=== PATIENT | male | born 1965 | race Caucasian/White ===

== ENCOUNTER 2016-06-07 05:46 | Emergency (ER) | payer BC ==
[2016-06-07 05:58] VITALS: BP 162/96
--- NOTE | 2016-06-07 06:11 | EDM.PDOC ---
ED HPI GENERAL MEDICAL PROBLEM - General Chief Complaint: General Stated Complaint: Tooth Pain Time Seen by Provider: 06/07/16 06:09 Source of Information: Reports: Patient, RN, RN notes reviewed History Limitations: Reports: No limitations - History of Present Illness INITIAL COMMENTS - FREE TEXT/NARRATIVE: Patient presents to the ED at [facility] with dental pain secondary to abscess formation. Patient states he does have an appointment with a dentist next week. No fevers or chills. No headaches. Pain and swelling is centrally located around right upper molar #4. Treatments [employer]IP[employer] APPRENTICE: Reports: Acetaminophen, Cold therapy, NSAIDS Tooth/Teeth Pain Score (Numeric/FACES): 8 - Related Data Allergies Allergy/AdvReac Type Severity Reaction Status Date / Time No Known Allergies Allergy Verified 06/07/16 05:51 Home Meds: Home Meds Acetaminophen [Tylenol Arthritis] 650 mg PO BID 06/07/16 [History] Cyclobenzaprine [Flexeril] 1 tab PO TID PRN 06/07/16 [History] Social & Family History - Tobacco Use Smoking Status *Q: Current Every Day Smoker Years of Tobacco use: 31 Packs/Tins Daily: 1.5 - Caffeine Use Caffeine Use: Reports: Coffee, Energy drinks - Recreational Drug Use Recreational Drug Use: No ED ROS GENERAL - Review of Systems Review Of Systems: See Below Constitutional: Denies: fever, chills, weakness HEENT: Reports: Dental pain Respiratory: Denies: Shortness of Breath, Cough Cardiovascular: Denies: Chest pain, Palpitations Skin: Reports: no symptoms Neurological: Denies: Dizziness, Headache, Numbness, Tingling ED EXAM, GENERAL - Physical Exam Exam: See Below Exam Limited By: No limitations General Appearance: alert, mild distress, obese Throat/Mouth: No airway compromise, Inflammation, Other (Severe dental caries with advanced periodontal disease; right facial swelling with tenderness; percussion sensitive) Neck: supple Respiratory/Chest: no respiratory distress, lungs clear, normal breath sounds Cardiovascular: regular rate, rhythm Neurological: alert, oriented Skin Exam: Warm, Dry, Intact, Normal color, No rash ED GENERAL MEDICAL PROCEDURES - Additional/Other Procedure(s) Other (Free Text) Procedure(s): Dental block performed; Right upper palate; complete anesthesia achieved. Patient tolerated procedure well. No complications. Course - Vital Signs Last Recorded V/S: Last Vital Signs Temp 36.2 C 06/07/16 05:56 Pulse 90 06/07/16 05:56 Resp 18 06/07/16 05:56 BP 162/96 H 06/07/16 05:56 Pulse Ox 96 06/07/16 05:56 - Orders/Labs/Meds Orders: Active Orders 24 hr Category Date Time Status Bupivacaine 0.5% [Marcaine 0.5%] Med 06/07/16 06:21 Ordered 30 ml INJECT ASDIRECTED PRN Lidocaine 1% [Xylocaine-MPF 1%] Med 06/07/16 06:20 Once 5 ml INJECT ONETIME ONE Medication Orders Lidocaine HCl (Xylocaine-Mpf 1%) 5 ml INJECT ONETIME ONE Stop: 06/07/16 06:21 Meds: Medications Generic Name Dose Route Start Last Admin Trade Name Freq PRN Reason Stop Dose Admin Lidocaine HCl 5 ml 06/07/16 06:20 Xylocaine-Mpf 1% INJECT 06/07/16 06:21 ONETIME ONE Departure - Departure Time of Disposition: 06:26 Disposition: Home, Self-Care 01 Condition: good Clinical Impression: Dental caries, Chronic gingivitis, Periodontal disease, Dental abscess Instructions: Dental Abscess, Dental Caries Referrals: Dorina Chen FOREIGN CORRESPONDENT [Primary Care Provider] - Forms: ED Department Discharge Additional Instructions: 1. Stay well hydrated and rest 2. Take antibiotic for the full coarse, even if feeling better; dont stop taking them until all gone 3. May alternate Tylenol/Advil as needed; use narcotic pain med sparingly 4. See a dentist [facility] 5. Warm salt water gargles several times a day 6. Use an antiseptic mouthwash - Problem List Review Problem List Initiated/Reviewed/Updated: Yes - My Orders Last 24 Hours: My Active Orders 06/07/16 06:20 Lidocaine 1% [Xylocaine-MPF 1%] 5 ml INJECT ONETIME ONE 06/07/16 06:21 Bupivacaine 0.5% [Marcaine 0.5%] 30 ml INJECT ASDIRECTED PRN - Assessment/Plan Last 24 Hours: My Active Orders 06/07/16 06:20 Lidocaine 1% [Xylocaine-MPF 1%] 5 ml INJECT ONETIME ONE 06/07/16 06:21 Bupivacaine 0.5% [Marcaine 0.5%] 30 ml INJECT ASDIRECTED PRN
[2016-06-07] MEDS ORDERED: Bupivacaine 0.5% 30 ML SDV INJECT PRN (06:21)
[2016-06-07] MEDS ORDERED: Take Home: Clindamycin HCl 150 MG Cap, 6 Cap Pack PO ONE (06:23)
[2016-06-07] MEDS ORDERED: methylPREDNISolone Sodium Succinate 125 MG/2 ML SDV IM ONE (06:24)
[2016-06-07] MEDS ORDERED: Take Home: traMADol 50 MG, 4 Tab Pack PO ONE (06:24)
== END 2016-06-07 06:52 | disposition home or self-care (01) ==
LOC: VM.ED 05:46
DX: K04.7 Periapical abscess without sinus (principal); K02.9 Dental caries, unspecified; K05.10 Chronic gingivitis, plaque induced; K05.6 Periodontal disease, unspecified; F17.210 Nicotine dependence, cigarettes, uncomplicated
CPT/HCPCS: 64400; 96372; 99282; A9270; J2930

== ENCOUNTER 2018-09-18 05:04 | Emergency (ER) | payer BC ==
[2018-09-18 05:10] VITALS: BP 140/92; PULSE 104
--- NOTE | 2018-09-18 05:45 | EDM.PDOC ---
ED HPI GENERAL MEDICAL PROBLEM - General Chief Complaint: ENT Problem Stated Complaint: swollen neck Time Seen by Provider: 09/18/18 05:17 Source of Information: Reports: Patient History Limitations: Reports: No Limitations - History of Present Illness INITIAL COMMENTS - FREE TEXT/NARRATIVE: 53-year-old white male that since this morning with a swollen right side of his lower jaw and neck area 1 year says he has had intermittent swelling off and on but may last weeks to months and may resolve a little but not fully he has just been dealing with it he says sometimes he is able to express some pus into his mouth when he presses on the area at least bad taste in his mouth he is not really been concerned about it but over the last week several people told him to go get this checked out and he states it has been getting a little painful over the last week and hurts to swallow some now he states he is having no trouble holding secretions or swallowing spit eating or drinking he has noticed over the last year if he eats something spicy or sour that it seems to go down and get better but then it returns patient denies any weight loss night sweats fever or chills no pain no swelling of the lymph nodes no loss of energy no weakness Patient does have a history of smoking one pack per day over the last 30 years mother has a history of colon cancer Improves with: Reports: Other (See history of present illness) - Related Data Allergies Allergy/AdvReac Type Severity Reaction Status Date / Time No Known Allergies Allergy Verified 09/18/18 05:04 Home Meds: Home Meds Acetaminophen [Tylenol Arthritis] 650 mg PO BID PRN 06/07/16 [History] Naproxen Sodium 220 mg PO ASDIRECTED PRN 09/18/18 [History] Past Medical History - Past Health History Medical/Surgical History: Denies Medical/Surgical History HEENT History: Reports: Other (See Below) Other HEENT History: Poor dental care. Planning to get teeth pulled and dentures this year. Musculoskeletal History: Reports: Fracture Other Musculoskeletal History: Leg fracture as a child that caused chronic roasterman pain and leg shortening. - Past Surgical History Musculoskeletal Surgical History: Reports: Other (See Below) Social & Family History - Tobacco Use Smoking Status *Q: Current Every Day Smoker Years of Tobacco use: 33 Packs/Tins Daily: 0.5 - Caffeine Use Caffeine Use: Reports: Coffee, Energy Drinks ED ROS ENT - Review of Systems Review Of Systems: See Below Constitutional: Reports: No Symptoms. Denies: Fever, Chills, Malaise, Weakness , Fatigue, Night Sweats, Decreased Appetite, Weight Loss HEENT: Reports: Throat Swelling. Denies: Dental Pain, Ear Discharge, Ear Pain, Eye Discharge, Eye Pain, Nose Pain, Rhinitis, Sinus Problem, Throat Pain, Vertigo, Vision Change Respiratory: Reports: No Symptoms Cardiovascular: Reports: No Symptoms Endocrine: Reports: No Symptoms GI/Abdominal: Reports: No Symptoms : Reports: No Symptoms Musculoskeletal: Reports: No Symptoms Skin: Reports: No Symptoms Neurological: Reports: No Symptoms Psychiatric: Denies: Anxiety Hematologic/Lymphatic: Reports: No Symptoms Immunologic: Reports: No Symptoms ED EXAM, ENT - Physical Exam Exam: See Below Exam Limited By: No Limitations General Appearance: Alert, WD/WN, No Apparent Distress Eye Exam: Bilateral Eye: EOMI, PERRL Ears: Normal External Exam, Normal Canal, Hearing Grossly Normal, Normal TMs. No: Hearing Loss, Auricular Erythema, Auricular Tenderness, Mastoid Swelling, Mastoid Tenderness, TM Bulging Nose: Normal Inspection, Normal Mucousa, No Blood Mouth/Throat: Normal Inspection, Normal Gums, Normal Lips, Normal Oropharynx, Normal Teeth. No: Dental Abcess, Dental Pain, Dental Tenderness, Drooling, Dry Mucous Membrane, Gum Swelling, Hoarse Voice, Lip Swelling, Peritonsillar Mass, Teething, Throat Pain, Throat Swelling, Tongue Swelling, Tonsillar Erythema, Tonsillar Swelling, Uvular Deviation (Exam positive edema noted to the right side of the lower jawline no tenderness to palpation it does not extend to the mastoid area approximately a 3 cm nonmobile semi-cystic areas noted just under the posterior mandibular jaw there is no adenopathy noted patient states when inside the jawline was palpated but he did get some relief patient has a Mallampati score 1 patent airway normal phonation normal ability to swallow no signs of any peritonsillar abscess uvula was midline tonsils were not swollen and non-cryptic no exudates present patient had full range of motion with his neck) Neck: Normal Inspection, Supple, Full Range of Motion, Tender Lateral. No: Non- Tender, Lymphadenopathy (L), Lymphadenopathy (R), Tender Midline Respiratory/Chest: No Respiratory Distress, Lungs Clear, Normal Breath Sounds, No Accessory Muscle Use GI/Abdominal: Normal Bowel Sounds, Soft, Non-Tender, No Organomegaly, No Distention Extremities: Normal Inspection, Normal Range of Motion Neurological: Alert, Oriented, CN II-XII Intact, Normal Cognition, Normal Gait Psychiatric: Normal Affect, Normal Mood Skin: Warm, Dry, Intact, Normal Color, No Rash Lymphatic: No Adenopathy Course - Vital Signs Text/Narrative:: CT scan of soft tissue neck will be ordered to rule out sialadenitis/tumor/mass patient [place] out this will be ordered as outpatient approximately about 8:30 to 9 AM secondary to this has been ongoing for the last year and having to call a x-ray tech in, patient is okay with this diagnosis and treatment and course of action says he is happy to wait and willing to return at that time says he is willing to go home and try to get a couple hours of sleep himself pt returned no issues this am nom changes in swallowing CT soft tissue neck DX obstructing sialolith resulting in sialoadenitis DR Yepez will see out pt in ENT clinic will call in am for apt Last Recorded V/S: Last Vital Signs Temp 35.3 C 09/18/18 05:07 Pulse 104 H 09/18/18 05:07 Resp 18 09/18/18 05:07 BP 140/92 H 09/18/18 05:07 Pulse Ox 95 09/18/18 05:07 Departure - Departure Time of Disposition: 10:35 Disposition: Home, Self-Care 01 Condition: Good Clinical Impression: Sialoadenitis - Discharge Information *PRESCRIPTION DRUG MONITORING PROGRAM REVIEWED*: Not Applicable *COPY OF PRESCRIPTION DRUG MONITORING REPORT IN PATIENT MONIQUE: No Instructions: Salivary Gland Infection Referrals: PCP,Unobtain [Ordering Only Provider] - Forms: ED Department Discharge Additional Instructions: Follow-up as an outpatient in clinic with Dr. YPEEZ (ENT) his number is he will call you wednesday for an out patient clinic visit - Problem List & Annotations (1) Sialoadenitis SNOMED Code(s): 22079081 Code(s): K11.20 - SIALOADENITIS, UNSPECIFIED Status: Acute - Assessment/Plan Plan: called [facility]
== END 2018-09-18 05:44 | disposition home or self-care (01) ==
LOC: VM.ED 05:04
DX: K11.20 Sialoadenitis, unspecified (principal); F17.210 Nicotine dependence, cigarettes, uncomplicated; Z79.899 Other long term (current) drug therapy; R22.1 Localized swelling, mass and lump, neck
CPT/HCPCS: 70490; 99282

== ENCOUNTER 2023-05-21 02:30 | Inpatient (IN) | payer BC, OTHER ==
[2023-05-21] MEDS: Albuterol/Ipratropium 3.0-0.5 MG/3 ML Neb Soln NEB ONE (02:40)
[2023-05-21 02:53] LABS: BASOPHILS ABSOLUTE AUTO 0.1 x10^3/uL (0.0-0.2); BASOPHILS PERCENT AUTO 0.4 % (0.2-1.2); EOSINOPHILS ABSOLUTE AUTO 0.2 x10^3/uL (0.0-0.5); EOSINOPHILS PERCENT AUTO 1.3 % (0.0-4.0); IMMATURE GRAN ABSOLUTE AUTO 0.04 x10^3/uL (0.00-0.07); LYMPHOCYTES ABSOLUTE AUTO 0.3 x10^3/uL (1.0-4.8); LYMPHOCYTES PERCENT AUTO 2.2 % (25.0-50.0); MEAN CORPUSCULAR HEMOGLOBIN 34.3 pg (26.0-32.0); MEAN CORPUSCULAR HGB CONC 34.9 g/dL (32.0-36.0); MEAN CORPUSCULAR VOLUME 98.4 fL (78.0-93.0); MONOCYTES ABSOLUTE AUTO 1.1 x10^3/uL (0.0-0.8); MONOCYTES PERCENT AUTO 8.5 % (2.0-11.0); NEUTROPHILS ABSOLUTE AUTO 11.2 x10^3/uL (1.8-7.7); NEUTROPHILS PERCENT AUTO 87.3 % (50.0-80.0); PLATELET COUNT,PLT 208 x10^3/uL (130-400); RED BLOOD CELL COUNT 4.37 x10^6/uL (4.5-6.0); WHITE BLOOD CELL COUNT,WBC 12.8 x10^3/uL (4.0-10.0)
[2023-05-21] MEDS: methylPREDNISolone Sodium Succinate 125 MG/2 ML SDV IVPUSH ONE (03:02)
[2023-05-21] MEDS: Ondansetron 4 MG/2 ML SDV IVPUSH ONE (03:09)
[2023-05-21] MEDS: diphenhydrAMINE 50 MG/ML SDV IVPUSH ONE (03:12)
[2023-05-21 03:17] LABS: A/G RATIO 1.26; ALANINE AMINOTRANSFERASE,ALT 23 U/L (16-63); ALBUMIN 3.9 g/dL (3.4-5.0); ALKALINE PHOSPHATASE 66 U/L (46-116); ASPARTATE AMNIOTRANSFERASE,AST 25 U/L (15-37); BILIRUBIN TOTAL 0.7 mg/dL (0.2-1.0); BLOOD UREA NITROGEN,BUN 15 mg/dL (7-18); C-REACTIVE PROTEIN 3.43 mg/dL (<=0.50); CALCIUM 8.9 mg/dL (8.5-10.1); CARBON DIOXIDE,CO2 26 mmol/L (21-32); CHLORIDE,CL 100 mmol/L (98-107); CREATININE 1.1 mg/dL (0.70-1.30); GLUCOSE RANDOM 104 mg/dL (70-99); POTASSIUM,K 4.3 mmol/L (3.5-5.1); PRO B-TYPE NATRIUR PEPT,BNPPRO 2309 pg/mL (<=125); SODIUM,NA 137 mmol/L (136-145)
[2023-05-21 03:18] LABS: ANION GAP 15.3 mmol/L (5-15); ESTIMATED GFR 77 mL/min (>=60)
[2023-05-21] MEDS: Furosemide 40 MG/4 ML VIAL IV ONE (03:29)
[2023-05-21] MEDS: cefTRIAXone 1 GM Vial IVPUSH ONE (03:29)
[2023-05-21] MEDS ORDERED: Ondansetron 4 MG Tab.DIS PO PRN (03:52)
[2023-05-21] MEDS ORDERED: Ondansetron 4 MG/2 ML SDV IV PRN (03:52)
[2023-05-21 03:55] LABS: CORONAVIRUS COVID-19 NAA NEGATIVE (NEGATIVE)
[2023-05-21 03:56] LABS: INFLUENZA A NAA POSITIVE (NEGATIVE); INFLUENZA B NAA NEGATIVE (NEGATIVE); RESPIRATORY SYNCYTIAL VIR NAA NEGATIVE (NEGATIVE)
[2023-05-21] MEDS: Ketorolac 30 MG/ML SDV IVPUSH ONE (04:52)
[2023-05-21] MEDS: Albuterol/Ipratropium 3.0-0.5 MG/3 ML Neb Soln NEB SCH (06:42)
[2023-05-21] MEDS: Azithromycin 250 MG Tab PO SCH (09:19)
[2023-05-21] MEDS: Oseltamivir 75 MG Cap PO SCH (12:00)
[2023-05-21] MEDS: tiZANidine 4 MG Tab PO PRN (12:07)
[2023-05-21] MEDS: Acetaminophen 325 MG Tab PO PRN (12:07)
[2023-05-21] MEDS: predniSONE 20 MG Tab PO SCH (12:10)
[2023-05-22 07:55] LABS: BASOPHILS PERCENT AUTO 0.2 % (0.2-1.2); HEMATOCRIT 38.8 % (40.0-52.0); HEMOGLOBIN 13.1 g/dL (14.0-18.0); IMMATURE GRAN ABSOLUTE AUTO 0.04 x10^3/uL (0.00-0.07); LYMPHOCYTES ABSOLUTE AUTO 0.7 x10^3/uL (1.0-4.8); LYMPHOCYTES PERCENT AUTO 4.8 % (25.0-50.0); MEAN CORPUSCULAR HEMOGLOBIN 33.5 pg (26.0-32.0); MEAN CORPUSCULAR HGB CONC 33.8 g/dL (32.0-36.0); MEAN CORPUSCULAR VOLUME 99.2 fL (78.0-93.0); MONOCYTES ABSOLUTE AUTO 0.9 x10^3/uL (0.0-0.8); MONOCYTES PERCENT AUTO 6.5 % (2.0-11.0); NEUTROPHILS PERCENT AUTO 88.2 % (50.0-80.0); PLATELET COUNT,PLT 178 x10^3/uL (130-400); RED BLOOD CELL COUNT 3.91 x10^6/uL (4.5-6.0); WHITE BLOOD CELL COUNT,WBC 13.6 x10^3/uL (4.0-10.0)
[2023-05-22 08:15] LABS: A/G RATIO 1.03; ALBUMIN 3.3 g/dL (3.4-5.0); BILIRUBIN TOTAL 0.4 mg/dL (0.2-1.0); C-REACTIVE PROTEIN 5.47 mg/dL (<=0.50); CALCIUM 8.3 mg/dL (8.5-10.1); CREATININE 1.2 mg/dL (0.70-1.30); EST CRCL DRUG DOSING (CG) 77.06 mL/min; POTASSIUM,K 3.7 mmol/L (3.5-5.1); PROTEIN TOTAL,TP 6.5 g/dL (6.4-8.2)
[2023-05-22 08:17] LABS: ANION GAP 15.7 mmol/L (5-15)
[2023-05-22] MEDS: Furosemide 40 MG Tab PO SCH (08:45)
[2023-05-22] MEDS: Benzonatate 100 MG Cap PO PRN (08:45)
[2023-05-22] MEDS: Ketorolac 30 MG/ML SDV IVPUSH PRN (08:46)
[2023-05-22] MEDS: Nicotine 14 MG/24 Hr Patch TRDERM SCH (11:36)
[2023-05-23 08:19] LABS: BASOPHILS PERCENT AUTO 0.2 % (0.2-1.2); HEMATOCRIT 40.9 % (40.0-52.0); HEMOGLOBIN 13.9 g/dL (14.0-18.0); IMMATURE GRAN ABSOLUTE AUTO 0.02 x10^3/uL (0.00-0.07); LYMPHOCYTES ABSOLUTE AUTO 1.1 x10^3/uL (1.0-4.8); LYMPHOCYTES PERCENT AUTO 9.1 % (25.0-50.0); MEAN CORPUSCULAR HEMOGLOBIN 34.1 pg (26.0-32.0); MEAN CORPUSCULAR VOLUME 100.2 fL (78.0-93.0); MONOCYTES PERCENT AUTO 8.7 % (2.0-11.0); NEUTROPHILS ABSOLUTE AUTO 9.5 x10^3/uL (1.8-7.7); NEUTROPHILS PERCENT AUTO 81.8 % (50.0-80.0); PLATELET COUNT,PLT 182 x10^3/uL (130-400); RED BLOOD CELL COUNT 4.08 x10^6/uL (4.5-6.0); WHITE BLOOD CELL COUNT,WBC 11.5 x10^3/uL (4.0-10.0)
[2023-05-23 08:33] LABS: A/G RATIO 0.97; ALBUMIN 3.3 g/dL (3.4-5.0); BILIRUBIN TOTAL 0.5 mg/dL (0.2-1.0); CALCIUM 8.4 mg/dL (8.5-10.1); CREATININE 1.2 mg/dL (0.70-1.30); EST CRCL DRUG DOSING (CG) 77.06 mL/min; POTASSIUM,K 4.4 mmol/L (3.5-5.1); PROTEIN TOTAL,TP 6.7 g/dL (6.4-8.2)
[2023-05-23 08:39] LABS: ANION GAP 14.4 mmol/L (5-15)
[2023-05-23] MEDS: Polyethylene Glycol 3350 Powder 17 GM Packet PO ONE (09:55)
[2023-05-24 10:56] VITALS: BP 135/99; PULSE 111
== END 2023-05-24 10:45 | disposition home or self-care (01) | DRG 194 ==
LOC: VM.ED 02:30 → VM.MS 03:40 → OBSVTOIN 11:08
PROVIDERS: ADMIT Physician Assistant Medical; ATTEND Family Medicine
DX: I50.9 Heart failure, unspecified (principal); J10.1 Influenza due to other identified influenza virus with other respiratory manifestations; F17.210 Nicotine dependence, cigarettes, uncomplicated; J40 Bronchitis, not specified as acute or chronic; M62.830 Muscle spasm of back; Z79.899 Other long term (current) drug therapy; Z87.81 Personal history of (healed) traumatic fracture
CPT/HCPCS: 0241U; 36415; 71045; 80053; 83880; 84484; 85025; 85379; 86140; 94640; 96374; 96375; 99285-25; A9270-GY; G0378; J0696; J1200; J1885; J1940; J2405; J2930; J7512; J7620-GY

== ENCOUNTER 2023-06-10 05:30 | Emergency (ER) | payer BC ==
[2023-06-10] MEDS: Sodium Chloride 0.9% 1,000 ML IV ONE (05:35)
[2023-06-10] MEDS ORDERED: Sodium Chloride 0.9% 10 ML Syringe FLUSH PRN (05:38)
[2023-06-10 05:47] LABS: BASOPHILS ABSOLUTE AUTO 0.1 x10^3/uL (0.0-0.2); BASOPHILS PERCENT AUTO 0.5 % (0.2-1.2); EOSINOPHILS ABSOLUTE AUTO 0.6 x10^3/uL (0.0-0.5); EOSINOPHILS PERCENT AUTO 3.9 % (0.0-4.0); IMMATURE GRAN ABSOLUTE AUTO 0.04 x10^3/uL (0.00-0.07); LYMPHOCYTES ABSOLUTE AUTO 2.3 x10^3/uL (1.0-4.8); LYMPHOCYTES PERCENT AUTO 15.6 % (25.0-50.0); MEAN CORPUSCULAR HEMOGLOBIN 34.4 pg (26.0-32.0); MEAN CORPUSCULAR VOLUME 95.6 fL (78.0-93.0); MONOCYTES ABSOLUTE AUTO 1.9 x10^3/uL (0.0-0.8); NEUTROPHILS ABSOLUTE AUTO 10.1 x10^3/uL (1.8-7.7); NEUTROPHILS PERCENT AUTO 66.9 % (50.0-80.0); PLATELET COUNT,PLT 269 x10^3/uL (130-400); RED BLOOD CELL COUNT 5.23 x10^6/uL (4.5-6.0)
[2023-06-10] MEDS: Calcium Chloride 10% 1 GM/10 ML Syringe IVPUSH ONE (05:51)
[2023-06-10 05:59] LABS: MONOCYTES PERCENT AUTO 12.8 % (2.0-11.0)
[2023-06-10 06:10] LABS: A/G RATIO 0.83; ALANINE AMINOTRANSFERASE,ALT 64 U/L (16-63); ALKALINE PHOSPHATASE 66 U/L (46-116); ANION GAP 15.9 mmol/L (5-15); ASPARTATE AMNIOTRANSFERASE,AST 25 U/L (15-37); BILIRUBIN TOTAL 0.5 mg/dL (0.2-1.0); BLOOD UREA NITROGEN,BUN 35 mg/dL (7-18); CALCIUM 9.5 mg/dL (8.5-10.1); CARBON DIOXIDE,CO2 27 mmol/L (21-32); CHLORIDE,CL 96 mmol/L (98-107); CREATININE 1.5 mg/dL (0.70-1.30); ESTIMATED GFR 53 mL/min (>=60); GLUCOSE RANDOM 122 mg/dL (70-99); MAGNESIUM 2.1 mg/dL (1.8-2.4); POTASSIUM,K 4.9 mmol/L (3.5-5.1); PROTEIN TOTAL,TP 8.8 g/dL (6.4-8.2); SODIUM,NA 134 mmol/L (136-145)
[2023-06-10 06:15] LABS: PROTHROMBIN TIME 9.8 SEC (8.9-11.5); PTT,PARTIAL THROMBOPLSTIN TIME 30.7 SEC (21.9-33.8)
[2023-06-10] MEDS ORDERED: Diltiazem 125 MG in Sodium Chloride 0.9% 100 ML IV SCH (06:30)
[2023-06-10] MEDS: Amiodarone 150 MG/3 ML SDV IVPUSH ONE (06:37)
[2023-06-10] MEDS: fentaNYL 50 MCG/ML SDV IVPUSH ONE (06:47)
== END 2023-06-10 08:05 | disposition short-term general hospital (02) ==
LOC: VM.ED 05:30
DX: I47.20 Ventricular tachycardia, unspecified (principal); I48.91 Unspecified atrial fibrillation; I25.10 Atherosclerotic heart disease of native coronary artery without angina pectoris; I50.9 Heart failure, unspecified; Z79.899 Other long term (current) drug therapy
CPT/HCPCS: 80053; 83735; 84484; 85025; 85610; 85730; 96361; 96365; 96375; 96376; 99285; J0282; J3010; J7030; 93005; J3490